=== PATIENT | female | born 1945 | race Caucasian/White ===

== ENCOUNTER 2018-08-06 15:48 | Inpatient (IN) | payer MEDICARE, BC ==
[~2018-08-06] VITALS: Ht 165.1 cm; Wt 63.0 kg
--- NOTE | 2018-08-06 15:55 | NUR ---
PT BIB CAREGIVER FOR RIGHT LATERAL WOUND ON ANKLE THAT IS NOT HEALING. CAREGIVER STATES "THE NURSE THAT VISITS TOLD ME IT IS NOT GETTING BETTER". PT ON MONITOR IN BED 5. WILL CONTINUE TO MONITOR.
[2018-08-06] MEDS ORDERED: CALC667C6 PO (16:37)
[2018-08-06] MEDS ORDERED: ENOX60DI8 SQ (16:37)
[2018-08-06] MEDS ORDERED: OMEP20CA10 PO (16:37)
[2018-08-06] MEDS ORDERED: CARB1TAB39 PO (16:37)
--- NOTE | 2018-08-06 16:45 | NUR ---
PHLEB AT BEDSIDE FOR LAB DRAW
[2018-08-06] MEDS ORDERED: VANCOMYCIN 1 GM in IV D5W 250 ML IV ONE (17:00)
[2018-08-06] MEDS ORDERED: IV NS 0.9% 1,000 ML BAG IV ONE ×2 (17:00→17:30)
[2018-08-06] MEDS ORDERED: PIPERACILLIN /TAZOBACTAM 3.375 G in IV D5W 50 ML IV ONE (17:00)
[2018-08-06 17:05] LABS: BASOPHILS # (AUTO) 0.1 /CMM (0.0-0.2); BASOPHILS % (AUTO) 0.4 % (0.0-2.0); EOSINOPHILS % (AUTO) 0.4 % (0.0-6.0); HEMATOCRIT 27 % (33-45); HEMOGLOBIN 9.2 g/dL (11.5-14.8); LYMPHOCYTES # (AUTO) 0.9 /CMM (0.8-4.8); LYMPHOCYTES % (AUTO) 6.2 % (20.0-44.0); MEAN CORPUSCULAR HGB CONC 34 g/dl (31.0-36.0); MEAN CORPUSCULAR VOLUME 87 fL (82-100); MONOCYTES # (AUTO) 1.1 /CMM (0.1-1.30); MONOCYTES % (AUTO) 7.3 % (2.0-12.0); NEUTROPHILS # (AUTO) 12.4 /CMM (1.8-8.9); NEUTROPHILS % (AUTO) 85.7 % (43.0-81.0); PLATELET COUNT (AUTO) 653 /CMM (150-450); RED BLOOD CELL COUNT(AUTO) 3.14 MIL/uL (4.0-5.2); WHITE BLOOD COUNT (AUTO) 14.5 K/uL (4.3-11.0)
[2018-08-06 17:13] LABS: CALCIUM, SERUM 8.7 mg/dL (8.5-10.1); CARBON DIOXIDE 27 mmol/L (21-32); CHLORIDE 86 mmol/L (98-107); CREATININE 1.5 mg/dL (0.6-1.3); GLUCOSE 100 mg/dL (74-106); POTASSIUM 4.8 mmol/L (3.5-5.1); UREA NITROGEN, BLOOD 26 mg/dL (7-18)
[2018-08-06 17:14] LABS: SODIUM SERUM 120 mmol/L (136-145)
[2018-08-06 17:20] LABS: ALANINE AMINOTRANSFERASE 10 U/L (12-78); ALKALINE PHOSPHATASE 124 U/L (46-116); ASPARTATE AMINOTRANSFERASE 13 U/L (15-37); BILIRUBIN,DIRECT 0.1 mg/dL (0.0-0.2); BILIRUBIN,TOTAL 0.5 mg/dL (0.2-1.0)
[2018-08-06 17:21] LABS: ALBUMIN 2.3 g/dL (3.4-5.0)
[2018-08-06 17:26] LABS: BAND % (MANUAL) 2 % (0.0-5.0); LYMPHOCYTES % (MANUAL) 5 % (16-48); MONOCYTES % (MANUAL) 9 % (0-11.0); NEUTROPHILS % (MANUAL) 84 (42-76)
[2018-08-06] MEDS ORDERED: MEROPENEM 1,000 MG in IV NS 0.9% 100 ML IV ONE (17:30)
--- NOTE | 2018-08-06 17:30 | NUR ---
URINE COLLECTED AND SENT TO LAB
[2018-08-06 17:37] LABS: APPEARANCE,URINE Cloudy (CLEAR); BILIRUBIN,URINE Negative (NEGATIVE); BLOOD, URINE Moderate Ery/uL (NEGATIVE); COLOR,URINE Other (YELLOW); KETONES,URINE Negative (NEGATIVE); LEUKOCYTE ESTERASE ,URINE Large (NEGATIVE); NITRITE, URINE Positive (NEGATIVE); PROTEIN,URINE 30 mg/dl (NEGATIVE); UGLUCOSE Negative (NEGATIVE); UROBILINOGEN,URINE 0.2 EU/dL (0.2)
[2018-08-06] MEDS ORDERED: CEFEPIME 1 GM VIAL IV ONE (18:00)
[2018-08-06 18:05] LABS: BACTERIA,URINE 4+ /HPF (None Seen); WBC,URINE TOO NUMEROUS TO COUN /HPF (0-3)
[2018-08-06 18:06] LABS: SQUAMOUS EPITHELIAL CELL,UR Few /HPF (None Seen)
--- NOTE | 2018-08-06 18:09 | NUR ---
CALLED [employer] MAILS SUPERVISOR WAS PAGED.
[2018-08-06] MEDS ORDERED: CEFEPIME 1 GM VIAL ONE (18:48)
[2018-08-06] MEDS ORDERED: CEFEPIME 2 GM in IV D5W 100 ML IV ONE (19:00)
[2018-08-06] MEDS ORDERED: ACETAMINOPHEN 650 MG/SUPP.RECT RC PRN (19:30)
[2018-08-06] MEDS ORDERED: ONDANSETRON HCL/PF 4 MG/2 ML VIAL IVP PRN (19:30)
--- NOTE | 2018-08-06 19:30 | NUR ---
REPORT GIVEN TO ANNA MARIE LOERA FOR LORIE
--- NOTE | 2018-08-06 19:35 | NUR ---
RECEIVED ENDORSEMENT FROM MANAGER CAFEANNA MARIE OVERTON FOR Pt's LORIE. REPORT ALREADY GIVEN TO 3W RN. WILL TRANSPORT Pt PER ACLS PROTOCOL ONCE READY.
--- NOTE | 2018-08-06 20:15 | NUR ---
RN MS ADMITTING NOTE RECEIVED PT FROM ER VIA TONI, ACCOMPANIED BY FAMILY, PT AWAKE, NON VERBAL, OPENS EYES TO NAME CALL. BREATHING EVEN AND UNLABORED ON 2L O2 NC, NO COUGHING OR SOB. IN NO APPARENT DISTRESS AT THE MOMENT. IV ACCESS ON THE L HAND 20G WITH NS @100ML/HR. DRESSING AND PACKING CHANGED ON THE WOUNDS ON THE R LATERAL ANKLE AND SACRAL AREA. GAVE BED BATH AND TOOK PICTURES OF ALL SKIN ISSUES, DOCUMENTED AND PLACED IN CHART. MADE COMFORTABLE, BED IN LOWEST LOCKED POSITION, WILL CONTINUE TO MONITOR
[2018-08-06] MEDS ORDERED: FEE PK DOSING 1 MIN EA MC ONE (20:16)
[2018-08-06 20:30] VITALS: BP 101/59
[2018-08-06] MEDS ORDERED: MEROPENEM 1 G in IV NS 0.9% 100 ML IV SCH (21:00)
[2018-08-06] MEDS: ENOXAPARIN SODIUM 60 MG/0.6 ML DISP.SYRIN SQ SCH (22:13)
[2018-08-06] MEDS: CALCIUM ACETATE 667 MG TABLET PO SCH (22:13)
[2018-08-06] MEDS: IV NS 0.9% 1,000 ML IV SCH (22:16)
[2018-08-07] VITALS: BP 113/54
[2018-08-07] MEDS ORDERED: POLYVINYL ALCOHOL 15 ML BOTTLE EACHEYE PRN (01:30)
[2018-08-07] MEDS: MEROPENEM 1 G in IV NS 0.9% 100 ML IV SCH ×2 (02:58→14:59)
[2018-08-07 04:00] VITALS: BP 102/59
--- NOTE | 2018-08-07 06:18 | NUR ---
NOVELTY DIPPER CLOSING NOTE PT REMAINS IN BED, SLEEPING, AROUSED TO TOUCH. BREATHING EVEN AND UNLABORED ON 2L O2 NC SATING AT 96. NO SOB NOTED. IV ACCESS ON THE L HAND 20G WITH NS @100ML/HR. PADRON IN PLACE, COLLECTING CLEAR YELLOW WITH SMALL TRACES OF SEDIMENT, TOTAL OUTPUT OF 1350ML. HEART MONITOR IN PLACE, HR IN THE 90S.CHANGED DRESSING FOR SACRAL WOUND, KEPT CLEAN AND DRY, NO SIGNS OF DISTRESS. BED IN LOWEST LOCKED POSITION, WILL ENDORSE TO DAY NURSE FOR LORIE.
[2018-08-07 07:05] LABS: BASOPHILS % (AUTO) 0.2 % (0.0-2.0); EOSINOPHILS % (AUTO) 1.3 % (0.0-6.0); HEMATOCRIT 26 % (33-45); HEMOGLOBIN 8.6 g/dL (11.5-14.8); LYMPHOCYTES # (AUTO) 0.8 /CMM (0.8-4.8); LYMPHOCYTES % (AUTO) 8.6 % (20.0-44.0); MEAN CORPUSCULAR HGB CONC 34 g/dl (31.0-36.0); MEAN CORPUSCULAR VOLUME 88 fL (82-100); MONOCYTES # (AUTO) 0.6 /CMM (0.1-1.30); MONOCYTES % (AUTO) 5.9 % (2.0-12.0); PLATELET COUNT (AUTO) 484 /CMM (150-450); RED BLOOD CELL COUNT(AUTO) 2.94 MIL/uL (4.0-5.2); WHITE BLOOD COUNT (AUTO) 9.5 K/uL (4.3-11.0)
[2018-08-07] MEDS: PANTOPRAZOLE 40 MG TABLET.DR PO SCH (07:30)
[2018-08-07 07:42] LABS: CALCIUM, SERUM 8.2 mg/dL (8.5-10.1); CARBON DIOXIDE 23 mmol/L (21-32); CHLORIDE 95 mmol/L (98-107); CREATININE 1.5 mg/dL (0.6-1.3); GLUCOSE 85 mg/dL (74-106); MAGNESIUM 1.8 mg/dL (1.8-2.4); PHOSPHORUS 3.7 mg/dL (2.5-4.9); POTASSIUM 5.3 mmol/L (3.5-5.1); SODIUM SERUM 126 mmol/L (136-145); UREA NITROGEN, BLOOD 22 mg/dL (7-18)
[2018-08-07 07:43] LABS: CHOLESTEROL 127 mg/dL (<200); HDL CHOLESTEROL 82 mg/dL (40-60); LDL 35 mg/dL (0-99); TRIGLYCERIDES 44 mg/dL (30-150)
[2018-08-07 08:00] VITALS: BP 98/73
--- NOTE | 2018-08-07 08:06 | NUR ---
swatch cutter Opening Note Patient received asleep, but easily arousable to touch, resting in bed. Patient shows no complaints of pain or signs of distress at this time. Respirations even and unlabored, saturating on 2L oxygen via nasal cannula. On court monitor, HR normal sinus rhythm with PVCs in 90s bpm. Peripheral IV to the left hand 20 gauge, intact, patent and running NS at 100 ml/hr. Serna catheter in place, intact and patent, draining clear, yellow urine with small amount of sediment. Dressing to the sacrum, clean, dry and intact. Wound consult this shift. Patient is currently clean and dry. Safety and Fall precautions in place: bed in lowest and locked position, side rails up x2, call light and personal possessions within reach. Family members to visit bedside today, caregiver Ting currently at bedside. Will continue to monitor and intervene as needed.
[2018-08-07] MEDS: IV NS 0.9% 1,000 ML IV SCH (08:50)
[2018-08-07] MEDS: CALCIUM ACETATE 667 MG TABLET PO SCH ×3 (08:51→17:35)
[2018-08-07] MEDS: ENOXAPARIN SODIUM 60 MG/0.6 ML DISP.SYRIN SQ SCH ×2 (08:52→22:12)
[2018-08-07] MEDS ORDERED: PANTOPRAZOLE 40 MG VIAL IV SCH (09:00)
[2018-08-07] MEDS: CARBIDOPA/LEVA CR 25/100MG 1 TAB.SA PO SCH (09:12)
[2018-08-07] MEDS ORDERED: IV NS 0.9% 1,000 ML IV PRN (11:00)
--- NOTE | 2018-08-07 12:12 | NUR ---
Social service consult requested by Wound RN Herminia due to pt. coming from home with Stage 4 sacral pressure ulcer. Pt. is a 73 year old female who is dependent for all her ADL's. ORION and piano case and bench assembler Mayra Simeon met with pt. and her caregiver Cristiana suzanne. Pt. was asleep. SW and piano case and bench assembler spoke with Cristiana who informed us that pt. lives with her Remi. Cristiana provides caregiving services Monday through Monday from 8AM to 5 PM. Pt. is currently receiving home health services with [facility] . Currently pt. has a hospital bed, Pearl lift and wheelchair. recreation facility manager Mayra Simeon spoke with pt's daughter Ricky via phone in pt' s room. Ricky informed Mayra Simeon to call pt' RN Yola from [employer] [facility] who will provide with more detail information as to what is needed at home as far as medical equipment. Ricky's contact is . Mayra Simeon to follow up with home health agency. No other social service needs are required at this time. SW is available, if needed. Addendum: 08/07/18 at 1222 by ALMAS SEARS Caregiver Cristiana
[2018-08-07] MEDS: NYSTATIN/TRIAMCIN CREAM 15 GM TUBE TP SCH ×2 (13:22→22:16)
[2018-08-07 16:00] VITALS: BP 100/67
[2018-08-07] MEDS: VANCOMYCIN 1 GM in IV D5W 250 ML IV SCH (17:35)
[2018-08-07] MEDS: NYSTATIN TOP POWDER 15 GM BOTTLE TP SCH (17:36)
[2018-08-07 18:33] LABS: CREATININE, URINE < 13.0 MG/DL (30.0-125.0); URINE SODIUM, RANDOM 67 mmol/l (40-220)
--- NOTE | 2018-08-07 19:00 | NUR ---
MS RN Closing Note Patient currently awake and resting in bed. Alert and oriented to name, patient non-verbal. Patient shows no complaints of pain or signs of distress at this time. Respirations even and unlabored, saturating on room air. Peripheral IV to the left hand 20 gauge, intact, patent and running Vancomycin as ordered. Serna catheter in place, intact and patent, draining clear, yellow urine with small amount of sediment; output of 1150 ml this shift. Dressing to the sacrum, clean, dry and intact. Dressing to the right ankle, clean, dry and intact. Both areas cleaned and dressed as ordered this shift with appropriate consults at bedside. Patient is currently clean and dry. Safety and Fall precautions in place: bed in lowest and locked position, side rails up x2, call light and personal possessions within reach. Family member, Ricky (daughter), currently at bedside. Will endorse to maintenance technician 2nd shift for continuity of care.
--- NOTE | 2018-08-07 19:00 | NUR ---
RN MS OPENING NOTES RECEIVED PATIENT IN BED, AWAKE ALERT AND ORIENTED X 1, NON VERBAL OBTUNDED, RESPIRATIONS EVEN AND UNLABORED WITH EQUAL RISE AND FALL OF CHEST, APPEARS TO BE COMFORTABLE AT THIS TIME, NO SOB PRESENT, NO FACIAL GRIMACING , GRUNT OR MOANS PRESENT. NOTED WITH PADRON INTACT AND DRAINING WELL WITH PROPER ALIGNMENT, NOTED URINE YELLOW CLEAR IN COLOR, IV SITE TO LEFT HAND #20 G INTACT AND PATENT, DRESSING TO RIGHT ANKLE INTACT, CLEAN AND DRY, DRESSING TO SACRAL INTACT, CLEAN AND DRY, HEAD OF BED ELEVATED FOR ASPIRATION PRECAUTIONS, SAFETY PRECAUTIONS IN PLACE, LOW BED AND LOCKED, BED ALARM IN PLACE, CALL LIGHT KEPT WITHIN REACH, PATIENT HEELS OFFLOADED AND REPOSITIONED TO SIDE FOR WOUND AND SKIN CARE MANAGEMENT, ALL NEEDS ATTENDED AT THIS TIME, WILL CONTINUE TO MONITOR.
[2018-08-07 19:04] LABS: OSMOLALITY,URINE 205 mOS/kg (340-1090)
[2018-08-07 20:00] VITALS: BP 100/63
[2018-08-07] MEDS ORDERED: CEFEPIME 2 GM in IV D5W 100 ML IV SCH (20:00)
--- NOTE | 2018-08-07 20:00 | NUR ---
RN MS NOTES UPON ATTEMPTING TO ADMINISTER MAXIPIME ATB IV ORDERED, UPON EXPLAINING TO DAUGHTER , YONG DAUGHTER REFUSED ADMINISTRATION DUE TO NEW ATB BEING INTRODUCED STATES SHE IS OKAY WITH ADMINISTRATION OF VANCOMYCIN AND MERREM BUT NOT MAXIPIME AND PATIENT HAS HISTORY OF C DIFF AND WOULD LIKE MORE INFORMATION AND RESEARCH AND WOULD LIKE TO TALK TO MD FIRST. MAXIPIME NOT ADMINISTERED
[2018-08-07 20:28] VITALS: BP 100/63
--- NOTE | 2018-08-07 22:00 | NUR ---
RN MS NOTES CALLED AND SPOKE TO DR GRAHAM REGARDING DAUGHTERS CONCERN PATIENT IS HARD STICK VEINS BLOW PER DAUGHTER REQUESTING TO DECREASE IV RATE , MADE MD AWARE OKAY TO DECREASE TO 75ML/HR ALSO DAUGHTER WOULD LIKE DOPPLER DONE TO LEFT ARM DUE TO SWELLING AND DISCOLORATION PER MD OKAY FOR DOPPLER DAUGHTER WILL ALSO BRING IN AM SINEMET DOSE TAKEN AT HOME TO FOLLOW.PER DAUGHTER TAKES IT TWICE A DAY AT HOME. NEW IV STARTED TO RIGHT SHOULDER #22 IVF RUNNING ORDERED WILL CONTINUE TO MONITOR FOR ANY S/S OF INFILTRATION WOUND CARE PROVIDED ORDERED. DAUGHTER DID NOT WANT CURRENT FOAM TAPE, OR PAPER TAPE, STATES IT WILL HURT HER SKIN . DAUGHTER WAS OKAY TO USE CLEAR MEDICAL TAPE. DRESSING REMAINS DRY AND INTACT OFFLOADED FOR SKIN AND WOUND MANAGEMENT.
--- NOTE | 2018-08-07 22:15 | NUR ---
RN MS NOTES UPON ASSESSMENT PATIENT WAS REPOSITIONED ON HER LEFT SIDE, NOTED PATIENT WITH HAND APPEAR S TO BE HOLDING ON OR SCRATCHING SKIN UPON ASSESSMENT NOTED SELF INFLICTED SCRATCH TO LEFT ARM WIT FLAP NOTED ARE ALSO IS DISCOLORED, PURPLE IN COLOR, SKIN CLEANSED AND PROTECTED WITH MEPILEX PICTURE TAKEN AND PLACED IN CHART, PATIENT REPOSITIONED. NO FACIAL GRIMACING PRESENT AT THIS TIME, WILL CONTINUE TO MONITOR.
--- NOTE | 2018-08-07 23:26 | NUR ---
RN MS NOTES RECEIVED RESULTS FOR LEFT UPPER EXTREMITY DOPPLER Normal left upper extremity Doppler ultrasound. No evidence of DVT.
[2018-08-08] MEDS: IV NS 0.9% 1,000 ML IV SCH ×2 (03:05→15:48)
[2018-08-08] MEDS: MEROPENEM 1 G in IV NS 0.9% 100 ML IV SCH (03:05)
[2018-08-08] MEDS: NYSTATIN TOP POWDER 15 GM BOTTLE TP SCH ×2 (05:12→16:27)
--- NOTE | 2018-08-08 06:40 | NUR ---
RN MS CLOSING NOTES PATIENT REPOSITIONED Q2H THROUGHOUT SHIFT, OFFLOADED HEELS AND AFFECTED WOUND AREA, PATIENT REMAINS CLEAN AND DRY , WOUND DRESSINGS REMAIN CLEAN DRY AND INTACT, IV SITE TO RIGHT SHOULDER #22 G INTACT AND PATENT, NO INFILTRATION, NO REDNESS PRESENT IVF RUNNING ORDERED, PADRON CATHETER INTACT AND DRAINING WELL URINE YELLOW,CLEAR, PATIENT SLEPT WELL THROUGHOUT NIGHT, ON CONTINUOUS PULSE OX ON 2 L VIA NC SPO2 AT 100%, NO BP ON LEFT ARM OR RIGHT LEG. HEAD OF BED ELEVATED, HANDLED GENTLY, ALL DUE MEDS GIVEN , SAFETY PRECAUTIONS IN PLACE, LOW BED AND LOCKED, BED ALARM IN PLACE, ALL NEEDS ATTENDED AND PATIENT REMAINS COMFORTABLE WILL CONTINUE TO MONITOR AND ENDORSE TO NEXT SHIFT , NO CHANGE THROUGHOUT NIGHT.
--- NOTE | 2018-08-08 06:46 | NUR ---
WOUND CARE CONSULT WOUND CARE RECEIVED CONSULT FOR NON HEALING WOUND ON THE RIGHT LATERAL ANKLE AND SACRAL WOUND. WOUND CARE WILL DEFER CONSULT AND ALL TREATMENT PLANS TO PLASTIC SURGICAL TEAM AND DPM THEY ARE CURRENTLY FOLLOWING. PATIENT WITH GREG AT 13, ALL PRESSURE ULCER PREVENTION MEASURES ARE NOTED TO BE IN PLACE AT THIS TIME. WILL SEE PRN.
[2018-08-08 06:55] LABS: BASOPHILS # (AUTO) 0.1 /CMM (0.0-0.2); BASOPHILS % (AUTO) 0.8 % (0.0-2.0); EOSINOPHILS % (AUTO) 2.6 % (0.0-6.0); HEMATOCRIT 23 % (33-45); HEMOGLOBIN 7.7 g/dL (11.5-14.8); LYMPHOCYTES % (AUTO) 10.2 % (20.0-44.0); MEAN CORPUSCULAR HGB CONC 33 g/dl (31.0-36.0); MEAN CORPUSCULAR VOLUME 89 fL (82-100); MONOCYTES # (AUTO) 0.6 /CMM (0.1-1.30); MONOCYTES % (AUTO) 6.4 % (2.0-12.0); PLATELET COUNT (AUTO) 457 /CMM (150-450); RED BLOOD CELL COUNT(AUTO) 2.63 MIL/uL (4.0-5.2)
[2018-08-08 07:17] LABS: CALCIUM, SERUM 8.6 mg/dL (8.5-10.1); CARBON DIOXIDE 25 mmol/L (21-32); CHLORIDE 100 mmol/L (98-107); CREATININE 1.5 mg/dL (0.6-1.3); GLUCOSE 88 mg/dL (74-106); MAGNESIUM 1.8 mg/dL (1.8-2.4); PHOSPHORUS 3.1 mg/dL (2.5-4.9); POTASSIUM 4.1 mmol/L (3.5-5.1); SODIUM SERUM 133 mmol/L (136-145); UREA NITROGEN, BLOOD 18 mg/dL (7-18)
--- NOTE | 2018-08-08 07:25 | NUR ---
RN OPENING NOTES PT RECIEVED IN BED AT LOWEST AND LOCKED POSITION WITH SIDE RAILS UPX2, PT IS NONVERBAL AND OBTUNDED, NO S/S OF PAIN OR DISTRESS NOTED, BREATHING EVEN AND UNLABORED, IV PATENT AND INTACT, SAFETY PRECAUTIONS IN PLACE, CALL LIGHT WITHIN REACH, WILL MONITOR ACCORDINGLY
[2018-08-08 07:26] LABS: THYROID STIMULATING HORMONE 1.562 uIU/mL (0.358-3.74)
[2018-08-08 08:00] VITALS: BP 110/66
[2018-08-08] MEDS: CARBIDOPA/LEVA CR 25/100MG 1 TAB.SA PO SCH (08:24)
[2018-08-08] MEDS: CALCIUM ACETATE 667 MG TABLET PO SCH ×3 (08:24→17:12)
[2018-08-08] MEDS: ENOXAPARIN SODIUM 60 MG/0.6 ML DISP.SYRIN SQ SCH ×2 (08:25→22:14)
[2018-08-08] MEDS: PANTOPRAZOLE 40 MG TABLET.DR PO SCH (08:26)
[2018-08-08] MEDS: DAKINS QUARTER STRENGTH (0.125%) 480 ML BOTTLE TOP SCH (09:00)
--- NOTE | 2018-08-08 09:53 | NUR ---
RN NOTES RECEIVED CALL FROM [facility] MICROBIOLOGY DEPARTMENT FROM MISAEL SANDOVAL ABOUT PT HAVING A GRAM POSITIVE COCCICLUSTER WHICH IS [facility] COAGULASE NEGATIVE. CHARGE NURSE ISIDRO INFORMED AT THIS TIME
--- NOTE | 2018-08-08 10:26 | NUR ---
RN NOTES MEDICAL RELEASE OF INFORMATION WAS REQUESTED AT THIS TIME BY DOCTOR, DAUGHTER YONG GAVE CONSENT VIA TELEPHONE FOR THE PT. ME AND NURSE MADISON ACKNOWLEDGED HER CONSENT AND SIGNED THE PAPERWORK. THE PAPER WAS HANDED TO MELANY FOR FURTHER IMPLEMENTATION OF REQUEST.
[2018-08-08] MEDS: NYSTATIN/TRIAMCIN CREAM 15 GM TUBE TP SCH ×2 (10:56→22:16)
--- NOTE | 2018-08-08 11:16 | NUR ---
RN NOTES DAUGHTER YONG CALL THE CAREGIVER WHO IS PRESENT AT PT BEDSIDE TO INFORM US THAT ACCORDING TO HER ALREADY HAD THE RESULTS FOR THE WOUND CULTURE AND THAT THEY CAME BACK POSITIVE FOR MRSA, THE WOUND CULTURES PERFORMED HERE REGARDING MRSA ARE CURRENTLY STILL PENDING. CHARGE NURSE ISIDRO MADE AWARE AND I WAS TOLD TO CALL AND ASK IF THE RESULTS COULD BE FAXED. DR. SAWANT WAS CALLED BUT NOBODY ANSWERED SO A MESSAGE WAS LEFT.
[2018-08-08] MEDS: ACIDOPHILUS/BULGARICUS 1 EACH TAB.CHEW PO SCH ×2 (13:14→17:12)
--- NOTE | 2018-08-08 15:42 | NUR ---
RN NOTES RECEIVED CALL FROM 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 CHARGE NURSE ISIDRO INFORMED AND PRECAUTIONS IMPLEMENTED
[2018-08-08 16:00] VITALS: BP 118/72
[2018-08-08] MEDS: MUPIROCIN OINT 2% 22 GM TUBE SCH ×2 (16:30→22:15)
[2018-08-08] MEDS: VANCOMYCIN 1 GM in IV D5W 250 ML IV SCH (17:12)
--- NOTE | 2018-08-08 18:43 | NUR ---
RN CLOSING NOTES PT IN BED AT LOWEST AND LOCKED POSITION WITH SIDE RAILS UPX2, PT IS NONVERBAL AND OBTUNDED, NO S/S OF PAIN OR DISTRESS, BREATHING EVEN AND UNLABORED, IV PATENT AND INTACT, ALL DRESSING CHANGED, SAFETY PRECAUTIONS IN PLACE, CALL LIGHT WITHIN REACH, ALL NEEDS WERE ATTENDED TO, WILL ENDORSE TO BRYOLOGIST RN FOR CONTINUITY OF CARE
--- NOTE | 2018-08-08 19:41 | NUR ---
MS RN NOTES RECEIVE PT IN BED NON VERBAL OPENS EYES IN STABLE CONDITION, NOT IN DISTRESS, SAFETY MEASURES IN PLACE. WILL CONTINUE TO MONITOR.
[2018-08-08 20:00] VITALS: BP 99/54
[2018-08-08 20:47] VITALS: BP 99/54
[2018-08-08] MEDS: CEFTRIAXONE 1 G in IV D5W 50 ML IV SCH (22:11)
[2018-08-09] MEDS: NYSTATIN TOP POWDER 15 GM BOTTLE TP SCH ×3 (05:05→22:51)
[2018-08-09] MEDS: IV NS 0.9% 1,000 ML IV SCH ×2 (05:06→19:00)
--- NOTE | 2018-08-09 06:28 | NUR ---
MS RN CLOSING NOTES REMAINS STABLE.ALL NURSING CARE RENDERED. KEPT CLEAN AND DRY AND COMFORTABLE, NEEDS ATTENDED AND ANTICIPATED. OFFLOAD HEELS AND ELBOWS. REPOSITION EVERY 2 HOURS. ON LOW BED AT ALL TIMES TO ENSURE SAFETY. SAFE HAZARD FREE ENVIRONMENT PROVIDED. CALL LIGHT WITHIN EASY TO REACH. WILL ENDORSE NEXT SHIFT CONTINUITY OF CARE
--- NOTE | 2018-08-09 07:07 | NUR ---
MS RN NOTES PATIENT IN BED EYES CLOSED, RESPOND TO VERBAL AND TACTILE STIMULI. VERBALLY RESPONSIVE. NO ACUTE DISTRESS NOTED. BREATHING UNLABORED. NO SOB NOTED. DENIED ANY PAIN. IV ACCESS PATENT AND INTACT, NO REDNESS OR SWELLING NOTED. SAFETY MEASURES IN PLACE. CALL LIGHT WITHIN REACH, WILL CONTINUE TO MONITOR ACCORDINGLY.
[2018-08-09 08:00] VITALS: BP 110/54
[2018-08-09 08:05] LABS: CALCIUM, SERUM 8.3 mg/dL (8.5-10.1); CARBON DIOXIDE 22 mmol/L (21-32); CHLORIDE 101 mmol/L (98-107); CREATININE 1.5 mg/dL (0.6-1.3); GLUCOSE 98 mg/dL (74-106); MAGNESIUM 1.7 mg/dL (1.8-2.4); PHOSPHORUS 2.8 mg/dL (2.5-4.9); POTASSIUM 3.9 mmol/L (3.5-5.1); SODIUM SERUM 134 mmol/L (136-145); UREA NITROGEN, BLOOD 14 mg/dL (7-18)
[2018-08-09 08:08] LABS: BASOPHILS # (AUTO) 0.1 /CMM (0.0-0.2); BASOPHILS % (AUTO) 0.8 % (0.0-2.0); EOSINOPHILS % (AUTO) 2.9 % (0.0-6.0); HEMATOCRIT 22 % (33-45); HEMOGLOBIN 7.3 g/dL (11.5-14.8); LYMPHOCYTES # (AUTO) 1.2 /CMM (0.8-4.8); LYMPHOCYTES % (AUTO) 10.9 % (20.0-44.0); MEAN CORPUSCULAR HGB CONC 33 g/dl (31.0-36.0); MEAN CORPUSCULAR VOLUME 89 fL (82-100); MONOCYTES # (AUTO) 0.6 /CMM (0.1-1.30); MONOCYTES % (AUTO) 5.2 % (2.0-12.0); NEUTROPHILS # (AUTO) 8.5 /CMM (1.8-8.9); NEUTROPHILS % (AUTO) 80.2 % (43.0-81.0); PLATELET COUNT (AUTO) 444 /CMM (150-450); RED BLOOD CELL COUNT(AUTO) 2.51 MIL/uL (4.0-5.2); WHITE BLOOD COUNT (AUTO) 10.6 K/uL (4.3-11.0)
[2018-08-09] MEDS: PANTOPRAZOLE 40 MG TABLET.DR PO SCH (08:41)
[2018-08-09] MEDS: CALCIUM ACETATE 667 MG TABLET PO SCH ×3 (08:41→17:14)
[2018-08-09] MEDS: ACIDOPHILUS/BULGARICUS 1 EACH TAB.CHEW PO SCH ×3 (08:41→17:14)
[2018-08-09] MEDS: CARBIDOPA/LEVA CR 25/100MG 1 TAB.SA PO SCH (08:41)
[2018-08-09] MEDS: MUPIROCIN OINT 2% 22 GM TUBE SCH ×2 (08:42→22:50)
[2018-08-09] MEDS: DAKINS QUARTER STRENGTH (0.125%) 480 ML BOTTLE TOP SCH (08:43)
[2018-08-09] MEDS: ENOXAPARIN SODIUM 60 MG/0.6 ML DISP.SYRIN SQ SCH ×2 (10:31→21:00)
[2018-08-09] MEDS: NYSTATIN/TRIAMCIN CREAM 15 GM TUBE TP SCH (11:03)
[2018-08-09] MEDS ORDERED: Magnesium 1GM/D5W 100ML PREMIX 100 ML IV SCH (12:30)
[2018-08-09 16:00] VITALS: BP 120/58
--- NOTE | 2018-08-09 19:00 | NUR ---
MS RN NOTES PATIENT IN BED EYES CLOSED, RESPOND TO VERBAL AND TACTILE STIMULI. NO ACUTE DISTRESS NOTED. BREATHING UNLABORED. NO SOB NOTED. NO FACIAL GRIMACING NOTED. IV ACCESS PATENT AND INTACT, NO REDNESS OR SWELLING NOTED. NEEDS ATTENDED AND ANTICIPATED. DUE MEDICATIONS GIVEN, NO ASE NOTED. KEPT CLEAN AND DRY AND COMFORTABLE. TURNED AND REPOSITION EVERY 2 HOURS AND NEEDED. SAFETY MEASURES IN PLACE. CALL LIGHT WITHIN REACH. ENDORSED TO NIGHT NURSE FOR CONTINUITY OF CARE.
[2018-08-09 20:00] VITALS: BP 104/55
[2018-08-09] MEDS: CEFTRIAXONE 1 G in IV D5W 50 ML IV SCH (21:35)
--- NOTE | 2018-08-09 22:00 | NUR ---
MS/RN KATY NOT GIVEN, PATIENT WILL HAV SURGERY IN A.M.
[2018-08-09 22:40] VITALS: BP 104/55
--- NOTE | 2018-08-09 22:42 | NUR ---
MS/RN PRBC ONE UNIT STARTED ORDERED. WILL MONITOR PER PROTOCOL.
[2018-08-09 23:05] VITALS: BP 109/69
[2018-08-09 23:15] VITALS: BP 110/65
[2018-08-10] MEDS: NYSTATIN/TRIAMCIN CREAM 15 GM TUBE TP SCH ×3 (00:01→23:29)
[2018-08-10 00:15] VITALS: BP 112/73
[2018-08-10 01:23] VITALS: BP 112/73
[2018-08-10 02:00] VITALS: BP 104/68
--- NOTE | 2018-08-10 02:57 | NUR ---
MS/RN BLOOD TRANSFUSION WAS FINISHED AT 0200, VITAL SIGNS STABLE, AFEBRILE, NO S/S OF BLOOD TRANSFUSION REACTION NOTED. WILL CONTINUE TO MONITOR.
[2018-08-10 04:00] VITALS: BP 100/64
--- NOTE | 2018-08-10 05:00 | NUR ---
MS/RN MORNING MAYRA WAS DONE, TOTAL LINEN CARE RENDERED, SKIN CARE DONE, DRESSING CHANGE DONE, REPOSITIONED TO COMFORT. WILL CONTINUE TO MONITOR.
[2018-08-10 05:30] LABS: BASOPHILS % (AUTO) 0.3 % (0.0-2.0); EOSINOPHILS % (AUTO) 1.9 % (0.0-6.0); HEMATOCRIT 25 % (33-45); HEMOGLOBIN 8.5 g/dL (11.5-14.8); LYMPHOCYTES # (AUTO) 1.4 /CMM (0.8-4.8); LYMPHOCYTES % (AUTO) 13.4 % (20.0-44.0); MEAN CORPUSCULAR HGB CONC 34 g/dl (31.0-36.0); MEAN CORPUSCULAR VOLUME 89 fL (82-100); MONOCYTES # (AUTO) 0.8 /CMM (0.1-1.30); MONOCYTES % (AUTO) 7.9 % (2.0-12.0); NEUTROPHILS # (AUTO) 7.9 /CMM (1.8-8.9); NEUTROPHILS % (AUTO) 76.5 % (43.0-81.0); PLATELET COUNT (AUTO) 480 /CMM (150-450); RED BLOOD CELL COUNT(AUTO) 2.84 MIL/uL (4.0-5.2); WHITE BLOOD COUNT (AUTO) 10.3 K/uL (4.3-11.0)
[2018-08-10 05:47] LABS: CALCIUM, SERUM 8.3 mg/dL (8.5-10.1); CARBON DIOXIDE 26 mmol/L (21-32); CHLORIDE 103 mmol/L (98-107); CREATININE 1.5 mg/dL (0.6-1.3); GLUCOSE 99 mg/dL (74-106); MAGNESIUM 1.9 mg/dL (1.8-2.4); PHOSPHORUS 2.9 mg/dL (2.5-4.9); POTASSIUM 3.7 mmol/L (3.5-5.1); SODIUM SERUM 137 mmol/L (136-145); UREA NITROGEN, BLOOD 19 mg/dL (7-18)
--- NOTE | 2018-08-10 06:49 | NUR ---
MS/RN PATIENT APPEAR SLEEPING, APPEAR COMFORTABLE, NO DISTRESS NOTED, NPO POST MIDNIGHT FOR SURGERY TODAY. ALL NEEDS ATTENDED AT THIS TIME, WILL CONTINUE TO MONITOR.
--- NOTE | 2018-08-10 07:08 | NUR ---
MS ANNA MARIE NOTES PATIENT IN BED EYES CLOSED, RESPOND TO VERBAL AND TACTILE STIMULI. NO ACUTE DISTRESS NOTED. BREATHING UNLABORED. NO SOB NOTED. IV ACCESS PATENT AND INTACT, NO REDNESS OR SWELLING NOTED. SAFETY MEASURES IN PLACE. TRANSPORTED TO OPERATING ROOM IN STABLE CONDITION. Addendum: 08/10/18 at 1950 by DULCE ZARCO RN DISREGARD ABOVE NOTED, WRONG PATIENT.
[2018-08-10] MEDS ORDERED: BUPIVACAINE 0.5 % PF 150 MG/30 ML VIAL ONE (07:27)
[2018-08-10] MEDS ORDERED: ANESTHESIA TRAY IN PYXIS 1 EA TRAY MC ONE (07:27)
[2018-08-10] MEDS ORDERED: LIDOCAINE HCL/PF 1% 30 ML SDV ONE (07:27)
[2018-08-10] MEDS: PANTOPRAZOLE 40 MG TABLET.DR PO SCH (07:30)
--- NOTE | 2018-08-10 07:30 | NUR ---
MS RN NOTES RECEIVED PATIENT ASLEEP IN BED WITH NO DISTRESS NOTED. PERIPHERAL IV INTACT AND PATENT. NO C/O PAIN OR DISCOMFORT. BED AT LOW LOCK SETTING. ALL BELONGINGS KEPT NEAR BEDSIDE. WILL CONTINUE TO MONITOR.
[2018-08-10] MEDS ORDERED: BACITRACIN 50000 UNITS/VIAL ONE (07:39)
[2018-08-10] MEDS: CALCIUM ACETATE 667 MG TABLET PO SCH ×3 (08:00→17:18)
[2018-08-10] MEDS: ACIDOPHILUS/BULGARICUS 1 EACH TAB.CHEW PO SCH ×3 (09:00→17:18)
[2018-08-10] MEDS: ENOXAPARIN SODIUM 60 MG/0.6 ML DISP.SYRIN SQ SCH (09:00)
[2018-08-10] MEDS: CARBIDOPA/LEVA CR 25/100MG 1 TAB.SA PO SCH (09:00)
--- NOTE | 2018-08-10 10:10 | NUR ---
MS RN NOTES PATIENT CAME BACK FROM OPERATING ROOM, DAUGHTER AT BED SIDE WITH STABLE VITAL SIGNS. PATIENT EYES CLOSED, RESPOND TO VERBAL AND TACTILE STIMULI. NO ACUTE DISTRESS NOTED. BREATHING UNLABORED. NO SOB NOTED. IV ACCESS PATENT AND INTACT, NO REDNESS OR SWELLING NOTED. DRESSING ON THE RIGHT LOWER EXTREMITIES INTACT, CLEAN AND DRY. SAFETY MEASURES IN PLACE. CALL LIGHT WITHIN REACH WILL CONTINUE TO MONITOR ACCORDINGLY.
[2018-08-10] MEDS: MUPIROCIN OINT 2% 22 GM TUBE SCH ×2 (10:11→21:13)
[2018-08-10] MEDS: DAKINS QUARTER STRENGTH (0.125%) 480 ML BOTTLE TOP SCH (10:14)
[2018-08-10 11:04] LABS: HEMOGLOBIN 7.8 g/dL (11.5-14.8)
--- NOTE | 2018-08-10 11:37 | NUR ---
MS RN NOTES RECEIVED NEW ORDERS FROM DR MEGAN SEGURA, NOTED AND CARRIED OUT.
[2018-08-10] MEDS: IV NS 0.9% 1,000 ML IV SCH ×2 (12:21→22:21)
[2018-08-10 16:24] VITALS: BP 108/63
[2018-08-10] MEDS: NYSTATIN TOP POWDER 15 GM BOTTLE TP SCH (17:19)
--- NOTE | 2018-08-10 18:00 | NUR ---
MS RN NOTES PATIENT AWAKE, RESPOND TO VERBAL AND TACTILE STIMULI, REMAIN IN STABLE CONDITION. NO ACUTE DISTRESS NOTED. VITAL SIGNS REMAINS STABLE.
[2018-08-10] MEDS: ACETAMINOPHEN 325 MG TABLET PO PRN ×2 (18:58→22:24)
--- NOTE | 2018-08-10 19:01 | NUR ---
MS RN CLOSING NOTES PATIENT REMAINS ASLEEP IN BED WITH NO DISTRESS NOTED. DTR AT BEDSIDE. NO FACIAL GRIMACING OR GROANING TO INDICATE PAIN OR DISCOMFORT. ALL DUE MEDS GIVEN ORDERED WITH NO ASE NOTED. BED IN LOW LOCK SETTING. CALL LIGHT WITHIN REACH. WILL ENDORSE TO ONCOMING SHIFT.
--- NOTE | 2018-08-10 19:02 | NUR ---
MS RN OPENING NOTES Received patient awake on high-pires's position on bed, eating fed by the daughter at bedside. On RA, saturating well @ 96%, no SOB/respiratory distress noted. Patient is non-verbal, no discomfort noted. with bilateral legs elevated, dressing clean, dry and intact. With patent F/C indwelling with clear yellow urine output. Call light at bedside. Kept bed low and lock. Will continue to monitor accordingly.
[2018-08-10 20:00] VITALS: BP 114/63
[2018-08-10] MEDS: CEFTRIAXONE 1 G in IV D5W 50 ML IV SCH (20:52)
--- NOTE | 2018-08-10 21:30 | NUR ---
MS RN NOTES Due meds Rocephin 1 gm IVPB as ordered. Monitored ELIJAH midline, no signs of infiltration noted. No signs of discomfort noted. Patient as sleep. Will continue to monitor accordingly.
[2018-08-11] MEDS: NYSTATIN TOP POWDER 15 GM BOTTLE TP SCH ×2 (05:19→17:11)
--- NOTE | 2018-08-11 06:39 | NUR ---
MS RN CLOSING NOTES Patient asleep on bed on High-Malone's position, easily aroused to stimuli, nonverbal, understands and responds to yes/no questions. With patent ELIJAH midline with NS infusing well @ 75ml/hr, noted edema on BUE, ELIJAH remained soft and non-tender. With O2 inhalation via NC @ 2LPM as ordered, saturating well @100%. With continuous pulse ox monitor as ordered. NJ throughout the shift between 100 -118bpm. No signs of discomfort noted. With indwelling catheter with clear yellow urine output. All due meds given, no ASE noted. All needs attended. Kept bed low and locked, with call light within easy reach. No new unusualities noted. Afebrile the whole shift. For RLE wound dressing by movie star. Sacral wound care done as ordered. Endorsed to the next shift for LORIE.
[2018-08-11 07:00] VITALS: BP 119/61
--- NOTE | 2018-08-11 07:49 | NUR ---
MS RN OPENING NOTES RECEIVED PT FROM NIGHTSHIFT RN IN STABLE. PT IS ALERT AND RESPONSIVE TO TACTILE STIMULI. NO SOB OR ACUTE SIGNS OF DISTRESS NOTED. BREATHING IS EVEN AND UNLABORED. PT ON RA AND SATING WELL. RIGHT UPPER ARE MIDLINE NOTED TO BE PATENT AND INTACT. BLOOD RETURN NOTED. PT TOLERATING IV FLUID WELL. PADRON CATHETER NOTED TO RUSLAN PATENT AND DRAINING CLEAR YELLOW URINE TO GRAVITY. BED IN LOW LOCKED POSITION, SIDE RAILS UP X3, CALL LIGHT WITHIN REACH, BED ALARM ON, CONTACT ISOLATION PRECAUTIONS OBSERVED. WILL CONTINUE TO MONITOR
[2018-08-11 08:00] VITALS: BP 99/66
[2018-08-11 08:40] LABS: CALCIUM, SERUM 8.2 mg/dL (8.5-10.1); CARBON DIOXIDE 26 mmol/L (21-32); CHLORIDE 105 mmol/L (98-107); CREATININE 1.5 mg/dL (0.6-1.3); GLUCOSE 88 mg/dL (74-106); POTASSIUM 3.6 mmol/L (3.5-5.1); SODIUM SERUM 139 mmol/L (136-145); UREA NITROGEN, BLOOD 19 mg/dL (7-18)
[2018-08-11] MEDS: ACIDOPHILUS/BULGARICUS 1 EACH TAB.CHEW PO SCH ×3 (09:00→17:07)
[2018-08-11] MEDS: CALCIUM ACETATE 667 MG TABLET PO SCH ×3 (09:00→17:07)
[2018-08-11] MEDS: CARBIDOPA/LEVA CR 25/100MG 1 TAB.SA PO SCH (09:00)
[2018-08-11] MEDS: PANTOPRAZOLE 40 MG TABLET.DR PO SCH (09:00)
[2018-08-11] MEDS: DAKINS QUARTER STRENGTH (0.125%) 480 ML BOTTLE TOP SCH (09:01)
[2018-08-11] MEDS: MUPIROCIN OINT 2% 22 GM TUBE SCH ×2 (09:01→21:45)
[2018-08-11] MEDS: ACETAMINOPHEN 325 MG TABLET PO PRN ×2 (09:12→17:07)
[2018-08-11] MEDS: IV NS 0.9% 1,000 ML IV SCH (10:09)
[2018-08-11] MEDS: NYSTATIN/TRIAMCIN CREAM 15 GM TUBE TP SCH ×2 (10:10→22:10)
[2018-08-11] MEDS ORDERED: IV NS 0.9% 1,000 ML IV PRN (10:30)
--- NOTE | 2018-08-11 14:26 | NUR ---
MS RN NOTES: MIDLINE PATENCY RESISTANCE NOTED WHEN FLUSHING PT'S MIDLINE. MIDLINE NURSE CALLED TO ASSESS PATENCY. PER RN "MIDLINE IS PATENT AND IN PLACE. RESISTANCE MAY BE DUE TO HOW IT WAS INSERTED".
[2018-08-11 16:00] VITALS: BP_SYST 103; BP_SYST 127; BP_DIAS 70; BP_DIAS 89
--- NOTE | 2018-08-11 16:26 | NUR ---
MS RN NOTES: VANCO ADMINISTRATION PHARMACIST JAYA CONSULTED IN REGARDS TO 1700 [facility]ANCO ADMINISTRATION. PER PHARMACIST, "1700 VANCO MAY BE HUNG BASED ON THE RESULTS OF HER RANDOM VANCO LAB RESULT"
[2018-08-11] MEDS ORDERED: VANCOMYCIN 1 GM in IV D5W 250 ML IV SCH (17:00)
--- NOTE | 2018-08-11 17:00 | NUR ---
MS RN NOTES: MD ORDERS DR QUINTERO AT BEDSIDE. MD UPDATED ON PT'S CONDITION. AND FAMILY CONCERNS IN REGARDS TO OBJECT SEEN IN PT'S EYE AND INCREASED RIGHT ARM EDEMA. PER MD "I WILL D/C HER FLUIDS, ORDER A DOPPLER TO R/O DVT, AND WE WILL DO A FLUORESCEIN STAIN TOMORROW"
--- NOTE | 2018-08-11 18:58 | NUR ---
MS RN CLOSING NOTES PT REMAINS STABLE. ALL NEEDS ANTICIPATED FOR AND MET DURING SHIFT. ALL DUE MEDS GIVEN. WOUND AND SKIN CARE RENDERED ORDERED. PT REPOSITIONED AND TURNED PER PROTOCOL. EXTREMITIES OFFLOADED ON PILLOWS ORDERED. MIDLINE REMAINS PATENT AND INTACT. IV FLUIDS STOPPED PER MD ORDER. PADRON CATHETER REMAINS PATENT AND DRAINING CLEAR YELLOW URINE TO GRAVITY. AWAITING US DOPPLER OF RIGHT UPPER EXTREMITY AND CXR. SAFETY MEASURES REMAIN IN PLACE. PT'S DAUGHTER AT BEDSIDE. WILL ENDORSE TO NIGHTSHIFT RN FOR LORIE
--- NOTE | 2018-08-11 19:20 | NUR ---
RN OPENING NOTES PT RESTING IN BED. PT NONVERBAL. OPENS EYES AT TIMES. DAUGHTER YONG AT BEDSIDE. NO APPARENT S/S OF PAIN, DISTRESS OR SOB AT THIS TIME. PT HAS PADRON CATHETER INTACT AND DRAINING WELL. PT HAS A RIGHT UPPER ARM MIDLINE, INTACT AND PATENT. AWAITING CHEST XR AND US DOPPLER OF RIGHT ARM. SAFETY PRECAUTIONS IN PLACE, BED IN LOWEST LOCKED POSITION, X3 SIDE RAILS UP AND CALL LIGHT WITHIN REACH. WILL CONTINUE TO MONITOR.
[2018-08-11] MEDS: CEFTRIAXONE 1 G in IV D5W 50 ML IV SCH (21:42)
[2018-08-11 21:58] VITALS: BP 119/61
[2018-08-12] MEDS: NYSTATIN TOP POWDER 15 GM BOTTLE TP SCH ×2 (05:47→16:55)
[2018-08-12 07:39] LABS: BASOPHILS % (AUTO) 0.5 % (0.0-2.0); EOSINOPHILS % (AUTO) 1.9 % (0.0-6.0); HEMATOCRIT 21 % (33-45); HEMOGLOBIN 7.2 g/dL (11.5-14.8); LYMPHOCYTES # (AUTO) 1.4 /CMM (0.8-4.8); LYMPHOCYTES % (AUTO) 13.1 % (20.0-44.0); MEAN CORPUSCULAR HGB CONC 34 g/dl (31.0-36.0); MEAN CORPUSCULAR VOLUME 90 fL (82-100); MONOCYTES # (AUTO) 0.6 /CMM (0.1-1.30); MONOCYTES % (AUTO) 5.4 % (2.0-12.0); NEUTROPHILS # (AUTO) 8.2 /CMM (1.8-8.9); NEUTROPHILS % (AUTO) 79.1 % (43.0-81.0); PLATELET COUNT (AUTO) 447 /CMM (150-450); RED BLOOD CELL COUNT(AUTO) 2.38 MIL/uL (4.0-5.2); WHITE BLOOD COUNT (AUTO) 10.4 K/uL (4.3-11.0)
[2018-08-12 07:45] LABS: CALCIUM, SERUM 8.8 mg/dL (8.5-10.1); CARBON DIOXIDE 25 mmol/L (21-32); CHLORIDE 107 mmol/L (98-107); CREATININE 1.4 mg/dL (0.6-1.3); GLUCOSE 98 mg/dL (74-106); MAGNESIUM 1.9 mg/dL (1.8-2.4); PHOSPHORUS 3.6 mg/dL (2.5-4.9); POTASSIUM 3.4 mmol/L (3.5-5.1); SODIUM SERUM 139 mmol/L (136-145); UREA NITROGEN, BLOOD 18 mg/dL (7-18)
--- NOTE | 2018-08-12 07:49 | NUR ---
MS RN OPENING NOTES RECEIVED PT FROM NIGHTSHIFT RN IN STABLE. PT IS ALERT AND RESPONSIVE TO TACTILE STIMULI. NO SOB OR ACUTE SIGNS OF DISTRESS NOTED. BREATHING IS EVEN AND UNLABORED. PT ON RA AND SATING WELL. RIGHT UPPER ARE MIDLINE NOTED TO BE PATENT AND INTACT. BLOOD RETURN NOTED. PADRON CATHETER NOTED TO BE PATENT AND DRAINING CLEAR YELLOW URINE TO GRAVITY. BED IN LOW LOCKED POSITION, SIDE RAILS UP X3, CALL LIGHT WITHIN REACH, BED ALARM ON, CONTACT ISOLATION PRECAUTIONS OBSERVED. WILL CONTINUE TO MONITOR
[2018-08-12 08:00] VITALS: BP 123/74
[2018-08-12] MEDS: PANTOPRAZOLE 40 MG TABLET.DR PO SCH (09:19)
[2018-08-12] MEDS: ACIDOPHILUS/BULGARICUS 1 EACH TAB.CHEW PO SCH ×3 (09:19→16:50)
[2018-08-12] MEDS: CARBIDOPA/LEVA CR 25/100MG 1 TAB.SA PO SCH (09:19)
[2018-08-12] MEDS: CALCIUM ACETATE 667 MG TABLET PO SCH ×3 (09:19→17:00)
[2018-08-12] MEDS: MUPIROCIN OINT 2% 22 GM TUBE SCH ×2 (09:27→20:34)
[2018-08-12] MEDS: DAKINS QUARTER STRENGTH (0.125%) 480 ML BOTTLE TOP SCH (09:27)
[2018-08-12] MEDS ORDERED: POTASSIUM CHLORIDE 20 MEQ TAB.PRT.SR PO SCH (09:30)
[2018-08-12] MEDS: NYSTATIN/TRIAMCIN CREAM 15 GM TUBE TP SCH ×2 (10:09→23:15)
[2018-08-12 10:58] LABS: LYMPHOCYTES % (MANUAL) 13 % (16-48); MONOCYTES % (MANUAL) 5 % (0-11.0); NEUTROPHILS % (MANUAL) 82 (42-76)
--- NOTE | 2018-08-12 13:02 | NUR ---
DR. SEGURA AT BEDSIDE AND COMPLETED PT'S LOWER EXTREMITY DRESSING CHANGE
[2018-08-12 16:00] VITALS: BP 117/87
[2018-08-12] MEDS: ACETAMINOPHEN 325 MG TABLET PO PRN (16:51)
--- NOTE | 2018-08-12 18:56 | NUR ---
MS RN CLOSING NOTES PT REMAINS STABLE. ALL NEEDS ANTICIPATED FOR AND MET DURING SHIFT. ALL DUE MEDS GIVEN. WOUND AND SKIN CARE RENDERED ORDERED. PT REPOSITIONED AND TURNED PER PROTOCOL. EXTREMITIES OFFLOADED ON PILLOWS ORDERED. MIDLINE REMAINS PATENT AND INTACT. PADRON CATHETER REMAINS PATENT AND DRAINING CLEAR YELLOW URINE TO GRAVITY. SAFETY MEASURES REMAIN IN PLACE. WILL ENDORSE TO NIGHTSHIFT RN FOR LORIE
--- NOTE | 2018-08-12 19:50 | NUR ---
RN MS OPENING NOTES RECEIVED PT IN BED, AWAKE, ALERT, OPENS EYES TO NAME CALL. BREATHING EVEN AND UNLABORED ON RA. NO COUGH NO CONGESTION. R UA MIDLINE PATENT AND FLUSHING, DRESSING INTACT. PADRON IN PLACE AND DRAINING TO A CLEAR YELLOW, NO SEDIMENTS. EDEMA ON BOTH UE. BED IN LOWEST LOCKED POSITION, CALL LIGHT WITHIN REACH AT ALL TIMES, WILL CONTINUE TO MONITOR
[2018-08-12 20:00] VITALS: BP 121/62
[2018-08-12] MEDS: CEFTRIAXONE 1 G in IV D5W 50 ML IV SCH (20:34)
[2018-08-13] MEDS: NYSTATIN TOP POWDER 15 GM BOTTLE TP SCH ×2 (05:20→17:52)
--- NOTE | 2018-08-13 06:08 | NUR ---
RN MS CLOSING NOTES PT REMAINS IN BED, SLEEPING, AROUSED TO TOUCH. BREATHING EVEN AND UNLABORED ON RA SATING AT 96. NO SOB NOTED. IN NO APPARENT DISTRESS, R UA MIDLINE, DRESSING CLEAN AND DRY. PADRON IN PLACE, COLLECTING CLEAR YELLOW NO TRACES OF SEDIMENTS..CHANGED DRESSING FOR SACRAL WOUND, KEPT CLEAN AND DRY, NO SIGNS OF DISTRESS. BED IN LOWEST LOCKED POSITION, WILL ENDORSE TO DAY NURSE FOR LORIE.
--- NOTE | 2018-08-13 07:23 | NUR ---
RN OPENING NOTES PT RECEIVED IN BED AT LOWEST AND LOCKED POSITION WITH SIDE RAILS UP X2, OBTUNDED AND NONVERBAL, BREATHING EVEN AND UNLABORED ON RA, NO S/S OF PAIN OR DISTRESS NOTED AT THIS TIME, IV IS PATENT AND INTACT, SAFETY PRECAUTIONS IN PLACE, CALL LIGHT WITHIN REACH, WILL MONITOR ACCORDINGLY
[2018-08-13 07:39] LABS: BASOPHILS # (AUTO) 0.1 /CMM (0.0-0.2); EOSINOPHILS % (AUTO) 1.9 % (0.0-6.0); HEMATOCRIT 22 % (33-45); HEMOGLOBIN 7.3 g/dL (11.5-14.8); LYMPHOCYTES # (AUTO) 1.6 /CMM (0.8-4.8); LYMPHOCYTES % (AUTO) 11.5 % (20.0-44.0); MEAN CORPUSCULAR HGB CONC 33 g/dl (31.0-36.0); MEAN CORPUSCULAR VOLUME 91 fL (82-100); MONOCYTES # (AUTO) 0.6 /CMM (0.1-1.30); MONOCYTES % (AUTO) 4.7 % (2.0-12.0); NEUTROPHILS # (AUTO) 10.9 /CMM (1.8-8.9); NEUTROPHILS % (AUTO) 80.9 % (43.0-81.0); PLATELET COUNT (AUTO) 399 /CMM (150-450); RED BLOOD CELL COUNT(AUTO) 2.44 MIL/uL (4.0-5.2); WHITE BLOOD COUNT (AUTO) 13.5 K/uL (4.3-11.0)
[2018-08-13 07:55] LABS: CALCIUM, SERUM 7.6 mg/dL (8.5-10.1); CARBON DIOXIDE 26 mmol/L (21-32); CHLORIDE 108 mmol/L (98-107); CREATININE 1.5 mg/dL (0.6-1.3); GLUCOSE 98 mg/dL (74-106); MAGNESIUM 1.8 mg/dL (1.8-2.4); PHOSPHORUS 3.5 mg/dL (2.5-4.9); POTASSIUM 3.5 mmol/L (3.5-5.1); SODIUM SERUM 138 mmol/L (136-145); UREA NITROGEN, BLOOD 22 mg/dL (7-18)
[2018-08-13 08:00] VITALS: BP 112/61
[2018-08-13] MEDS: CARBIDOPA/LEVA CR 25/100MG 1 TAB.SA PO SCH (08:10)
[2018-08-13] MEDS: CALCIUM ACETATE 667 MG TABLET PO SCH ×3 (08:10→17:51)
[2018-08-13] MEDS: ACIDOPHILUS/BULGARICUS 1 EACH TAB.CHEW PO SCH ×3 (08:10→17:51)
[2018-08-13] MEDS: PANTOPRAZOLE 40 MG TABLET.DR PO SCH (08:10)
[2018-08-13] MEDS: DAKINS QUARTER STRENGTH (0.125%) 480 ML BOTTLE TOP SCH (08:18)
[2018-08-13] MEDS: MUPIROCIN OINT 2% 22 GM TUBE SCH ×2 (08:19→20:22)
[2018-08-13 08:44] LABS: EOSINOPHILS % (MANUAL) 2 % (0-4); LYMPHOCYTES % (MANUAL) 13 % (16-48); MONOCYTES % (MANUAL) 6 % (0-11.0); NEUTROPHILS % (MANUAL) 79 (42-76)
[2018-08-13] MEDS: NYSTATIN/TRIAMCIN CREAM 15 GM TUBE TP SCH (10:50)
--- NOTE | 2018-08-13 11:33 | NUR ---
RN NOTES Ceftriaxone D/C per order from Dr. Voss at this time
[2018-08-13 16:00] VITALS: BP 137/65
[2018-08-13] MEDS ORDERED: VANCOMYCIN 1 GM in IV D5W 250 ML IV SCH (18:00)
--- NOTE | 2018-08-13 18:48 | NUR ---
RN CLOSING NOTES PT IN BED AT LOWEST AND LOCKED POSITION WITH SIDE RAILS UP X2, OBTUNDED AND NONVERBAL, BREATHING EVEN AND UNLABORED, NO S/S OF PAIN OR DISTRESS NOTED AT THIS TIME, IV IS PATENT AND INTACT, FAMILY AT THE BEDSIDE, SAFETY PRECAUTIONS IN PLACE, CALL LIGHT WITHIN REACH, ALL NEEDS ATTENDED TO, WILL ENDORSE TO NIGHT RN FOR CONTINUITY OF CARE
--- NOTE | 2018-08-13 19:27 | NUR ---
MS THRASHER OPENING NOTES: RECEIVED PT ON ROOM AIR AND IS TOLERATING WELL. PT OPENS EYES AND IS NON-VERBAL. PT HAS ELIJAH MIDLINE AND IS PATENT AND INTACT. CURRENTLY H/L. PT HAS PADRON CATH AND IS ATTACHED TO DRAINAGE BAG WITH YELLOW URINE DRAINING. BED ALARM ACTIVATED. BED KEPT IN LOW, LOCKED POSITION, AND SIDE RAILS X 2UP. WILL CONTINUE TO MONITOR PT. Addendum: 08/13/18 at 1953 by LIUDMILA ALEXANDER RN PT ON CONTINUOUS PULSE OX.
[2018-08-13 20:00] VITALS: BP 129/70
[2018-08-14] MEDS: NYSTATIN/TRIAMCIN CREAM 15 GM TUBE TP SCH ×2 (00:18→11:00)
[2018-08-14] MEDS: NYSTATIN TOP POWDER 15 GM BOTTLE TP SCH (04:20)
--- NOTE | 2018-08-14 06:43 | NUR ---
MS THRASHER CLOSING NOTES: ALL NEEDS WERE ATTENDED AND ANTICIPATED FOR. PT KEPT CLEAN, DRY, AND COMFORTABLE. PT PLACED ON 2LPM VIA NC AND IS TOLERATING WELL. PT ON CONTINUOUS PULSE OX. PT TURNED AND REPOSITIONED PER PROTOCOL. WOUND TX PERFORMED. HEELS OFFLOADED. PT ON SPECIAL MATTRESS. ELIJAH MIDLINE REMAINS INTACT AND CURRENTLY H/L. BED KEPT IN LOW, LOCKED POSITION, AND SIDE RAILS X 2UP. WILL ENDORSE TO AM NURSE FOR LORIE. Addendum: 08/14/18 at 0647 by LIUDMILA ALEXANDER RN PT HAS PADRON CATH AND IS ATTACHED TO DRAINAGE BAG WITH YELLOW URINE DRAINING. OUTPUT WAS 1,000ML.
[2018-08-14 07:05] LABS: BASOPHILS % (AUTO) 0.5 % (0.0-2.0); EOSINOPHILS % (AUTO) 2.8 % (0.0-6.0); HEMATOCRIT 22 % (33-45); HEMOGLOBIN 7.3 g/dL (11.5-14.8); LYMPHOCYTES # (AUTO) 1.3 /CMM (0.8-4.8); LYMPHOCYTES % (AUTO) 12.5 % (20.0-44.0); MEAN CORPUSCULAR HGB CONC 34 g/dl (31.0-36.0); MEAN CORPUSCULAR VOLUME 89 fL (82-100); MONOCYTES # (AUTO) 0.6 /CMM (0.1-1.30); MONOCYTES % (AUTO) 5.2 % (2.0-12.0); NEUTROPHILS # (AUTO) 8.5 /CMM (1.8-8.9); PLATELET COUNT (AUTO) 399 /CMM (150-450); RED BLOOD CELL COUNT(AUTO) 2.43 MIL/uL (4.0-5.2); WHITE BLOOD COUNT (AUTO) 10.7 K/uL (4.3-11.0)
[2018-08-14 07:28] LABS: CALCIUM, SERUM 8.8 mg/dL (8.5-10.1); CARBON DIOXIDE 26 mmol/L (21-32); CHLORIDE 103 mmol/L (98-107); CREATININE 1.4 mg/dL (0.6-1.3); GLUCOSE 113 mg/dL (74-106); MAGNESIUM 1.7 mg/dL (1.8-2.4); PHOSPHORUS 3.4 mg/dL (2.5-4.9); POTASSIUM 3.6 mmol/L (3.5-5.1); SODIUM SERUM 137 mmol/L (136-145); UREA NITROGEN, BLOOD 21 mg/dL (7-18)
[2018-08-14 07:46] LABS: BAND % (MANUAL) 1 % (0.0-5.0); LYMPHOCYTES % (MANUAL) 14 % (16-48); MONOCYTES % (MANUAL) 5 % (0-11.0); NEUTROPHILS % (MANUAL) 80 (42-76)
--- NOTE | 2018-08-14 08:00 | NUR ---
MS RN NOTES PATIENT IN BED RESTING NO SOB OR ACUTE DISTRESS NOTED. AT BEDSIDE STATES HE WAS PROMISED BY DR. QUINTERO PATIENT WILL BE DISCHARGED HOME AT 1000 AM HE IS WAITING FOR DISCHARGE. PATIENT PERSISTENT FOR PATIENT TO BE DISCHARGED SOON POSSIBLE. DR. JAYA QUINTERO PAGED WAITING FOR CALL BACK.
[2018-08-14] MEDS: CALCIUM ACETATE 667 MG TABLET PO SCH (08:16)
[2018-08-14] MEDS: PANTOPRAZOLE 40 MG TABLET.DR PO SCH (08:16)
[2018-08-14] MEDS: ACIDOPHILUS/BULGARICUS 1 EACH TAB.CHEW PO SCH (08:16)
[2018-08-14] MEDS: CARBIDOPA/LEVA CR 25/100MG 1 TAB.SA PO SCH (08:16)
[2018-08-14] MEDS: DAKINS QUARTER STRENGTH (0.125%) 480 ML BOTTLE TOP SCH (08:17)
[2018-08-14] MEDS: MUPIROCIN OINT 2% 22 GM TUBE SCH (08:18)
--- NOTE | 2018-08-14 10:07 | NUR ---
MS RN NOTES RECEIVED CALL FROM DR. JAYA QUINTERO WITH ORDERS TO DISCHARGE PATIENT WITH HOME HEALTH ([facility]) AND [facility]. ORDERS NOTED AND CARRIED OUT. PATIENTS VERY ANXIOUS TO TAKE PATIENT HOME FOR ANDREE TO SPEND IT WITH FAMILY.
[2018-08-14] MEDS ORDERED: Magnesium 1GM/D5W 100ML PREMIX 100 ML IV SCH (10:51)
[2018-08-14] MEDS ORDERED: MAGNESIUM OXIDE 400 MG TABLET PO ONE (11:30)
--- NOTE | 2018-08-14 11:30 | NUR ---
MS RN NOTES PATIENT DISCHARGED HOME WITH FAMILY. PATIENT NONE VERBAL PRIMARY CAREGIVER. PATIENT. PROVIDED PHONE NUMBER TO [employer] AND [employer]. PATIENT ALSO PROVED PHONE NUMBER TO DR CONTRERAS OFFICE TO FOLLOW UP. WOUND CARE PERFORMED ORDERED. FAMILY EDUCATED ON WOUND CARE AND S/S OF INFECTION. PATIENT DISCHARGED WITH PADRON. EDUCATION PROVED ON CARE OF PADRON CATH. FAMILY VERBALIZED UNDERSTANDING OF EDUCATION. ALL BELONGINGS ACCOUNTED FOR BELONGING LIST SIGNED. DISCHARGE EDUCATION PROVIDED TO FAMILY VERBALIZED UNDERSTANDING. PATIENT WITH MIDLINE INTACT PATENT. DISCHARGED HOME WITH MIDLINE DUE TO IV ATB AT HOME. PATIENT ESCORTED TO CARE WITH FAMILY WITH WHEELCHAIR.
== END 2018-08-14 11:30 | disposition home health service (06) | DRG 853 ==
LOC: ER 15:56 → MED 18:42 → TELE 23:20 → MED 08-07 08:53
PROVIDERS: ADMIT Registered Nurse
PROC: 0KBP0ZZ Excision of Left Hip Muscle, Open Approach (ICD-10-PCS; principal; 2018-08-07)
PROC: 0KBN0ZZ Excision of Right Hip Muscle, Open Approach (ICD-10-PCS; 2018-08-07)
PROC: 05H533Z Insertion of Infusion Device into Right Subclavian Vein, Percutaneous Approach (ICD-10-PCS; 2018-08-08)
PROC: B546ZZA Ultrasonography of Right Subclavian Vein, Guidance (ICD-10-PCS; 2018-08-08)
PROC: 0SPF04Z Removal of Internal Fixation Device from Right Ankle Joint, Open Approach (ICD-10-PCS; 2018-08-10)
DX: A41.9 Sepsis, unspecified organism (principal); L89.154 Pressure ulcer of sacral region, stage 4; C90.00 Multiple myeloma not having achieved remission; D61.818 Other pancytopenia; E87.1 Hypo-osmolality and hyponatremia; N39.0 Urinary tract infection, site not specified; L97.319 Non-pressure chronic ulcer of right ankle with unspecified severity; C90.01 Multiple myeloma in remission; E44.0 Moderate protein-calorie malnutrition; I82.509 Chronic embolism and thrombosis of unspecified deep veins of unspecified lower extremity; L03.115 Cellulitis of right lower limb; T84.84XA Pain due to internal orthopedic prosthetic devices, implants and grafts, initial encounter; E86.0 Dehydration; B96.20 Unspecified Escherichia coli [E. coli] as the cause of diseases classified elsewhere; Y83.1 Surgical operation with implant of artificial internal device as the cause of abnormal reaction of the patient, or of later complication, without mention of misadventure at the time of the procedure; N18.9 Chronic kidney disease, unspecified; K21.9 Gastro-esophageal reflux disease without esophagitis; Z87.440 Personal history of urinary (tract) infections; Z68.23 Body mass index [BMI] 23.0-23.9, adult; L98.9 Disorder of the skin and subcutaneous tissue, unspecified; L30.4 Erythema intertrigo; L89.519 Pressure ulcer of right ankle, unspecified stage; B95.62 Methicillin resistant Staphylococcus aureus infection as the cause of diseases classified elsewhere; E86.1 Hypovolemia; E87.5 Hyperkalemia; F03.90 Unspecified dementia, unspecified severity, without behavioral disturbance, psychotic disturbance, mood disturbance, and anxiety; R32 Unspecified urinary incontinence; Z22.322 Carrier or suspected carrier of Methicillin resistant Staphylococcus aureus; Z86.14 Personal history of Methicillin resistant Staphylococcus aureus infection
CPT/HCPCS: 36415; 36569; 71045-TC; 73610-TC; 80048-TC; 80061-TC; 80076-TC; 80202-TC; 81000-TC; 82570-TC; 82962-TC; 83605-TC; 83735-TC; 83880; 83935-TC; 84100-TC; 84132-TC; 84300-TC; 84443-TC; 84484-TC; 85025-TC; 85027-TC; 85652-TC; 85730-TC; 86140-TC; 86850-TC; 86921-TC; 87040-TC; 87070-TC; 87081-TC; 87086-TC; 87186-TC; 93307-TC; 93970-TC; 93971-TC; 94760-TC; A4606; A6253; A6402; A6403; G0378; J0692; J0696; J1650; J2185; J2543; J3370; J3475; J3490; J7030; J7040; J7050; J7060; P9016-BL; Z7610